=== PATIENT | male | born 1950 | race African-American/Black ===

== ENCOUNTER 2017-02-22 15:55 | Emergency (ER) | payer OTHER ==
--- NOTE | 2017-02-22 16:23 | ER Document Report ---
ED General - General Stated Complaint: ALTERED MENTAL STATUS Time seen by provider: 16:19 Mode of Arrival: Medic Information source: Patient Notes: This is a 66-year-old man with a history of hypertension and diabetes who is brought in by EMS because of an altered mental status. EMS reports that the patient had gone to the [employer] and that he had parked in the middle of the road and got out. EMS was apparently called because the patient appeared confused. Blood glucose in the field was 140. In the emergency room, the patient is without complaint. He does not remember the events after the [employer]. He states he went to the [employer] to get money. - HPI Onset: Just prior to arrival Onset/Duration: Sudden Quality of pain: No pain Severity: None Pain Level: Denies Associated symptoms: denies: Chills, Nonproductive cough, Productive cough, Fever, Shortness of breath Exacerbated by: Denies Relieved by: Denies Similar symptoms previously: No Recently seen / treated by doctor: No - Related Data Allergies/Adverse Reactions: No Known Allergies Allergy (Verified 02/22/17 17:19) Home Medications: Current Home Medications Amlodipine Besylate 10 mg PO DAILY 02/22/17 [History] Duloxetine HCl 60 mg PO DAILY 02/22/17 [History] Past Medical History - General Information source: Patient, Emergency Med Personnel - Social History Smoking Status: Current Every Day Smoker Cigarette use (# per day): Yes - a pack and a half a day Chew tobacco use (# tins/day): No Smoking Education Provided: No Frequency of alcohol use: None Drug Abuse: None Lives with: Family Family History: None Patient has suicidal ideation: No Patient has homicidal ideation: No - Past Medical History Cardiac Medical History: Reports: Hx Hypertension Pulmonary Medical History: Reports: None Neurological Medical History: Reports: None Endocrine Medical History: Reports: Hx Diabetes Mellitus Type 2 Renal/ Medical History: Reports: None Malignancy Medical History: Reports None GI Medical History: Reports: None Musculoskeltal Medical History: Reports None Skin Medical History: Reports None Psychiatric Medical History: Reports: None Traumatic Medical History: Reports: None Infectious Medical History: Reports: None Surgical Hx: Other - Noncontributory Review of Systems - Review of Systems Constitutional: denies: Chills, Fever EENT: No symptoms reported Cardiovascular: No symptoms reported Respiratory: No symptoms reported Gastrointestinal: No symptoms reported Genitourinary: No symptoms reported Male Genitourinary: No symptoms reported Musculoskeletal: No symptoms reported Skin: No symptoms reported Hematologic/Lymphatic: No symptoms reported Neurological/Psychological: See HPI Physical Exam - Vital signs Vitals: Pulse Resp BP Pulse Ox 87 16 161/98 H 98 02/22/17 15:57 02/22/17 15:57 02/22/17 15:57 02/22/17 15:57 Notes: Physical exam: GENERAL: 66-year-old man, sitting up in stretcher, no acute distress. HEAD: Atraumatic, normocephalic. EYES: Pupils equal round and reactive to light, extraocular movements intact, sclera anicteric, left conjunctiva is injected. ENT: The patient does have 2 small abrasions on the inner aspect of the bridge of the nose on the left side. There is no tenderness over the bridge of the nose. The septum are intact. There is no evident other evidence of injury. Patient denies any fall or trauma. It is possible he scratch the area. His nails are long. TMs normal, nares patent, oropharynx clear without exudates. Moist mucous membranes. NECK: Normal range of motion, supple without lymphadenopathy or JVD. LUNGS: Breath sounds clear to auscultation bilaterally and equal. No wheezes rales or rhonchi. HEART: Regular rate and rhythm without murmurs, rubs or gallops. ABDOMEN: Soft, normoactive bowel sounds. No tenderness to palpation. No guarding, no rebound. No masses appreciated. EXTREMITIES: Normal range of motion, no pitting or edema. No clubbing or cyanosis. NEUROLOGICAL: Cranial nerves II through XII grossly intact. The patient knows where he is, the month, the year, his age and the president. Motor exam is 5 over 5 upper and lower, Normal speech, cerebellar exam (finger to nose) is sharp. PSYCH: Normal mood, normal affect. SKIN: Warm, Dry, normal turgor, no rashes or lesions noted. Course - Vital Signs Vital signs: Temp Pulse Resp BP Pulse Ox 98.0 F 87 19 171/95 H 95 02/22/17 16:04 02/22/17 16:04 02/22/17 20:25 02/22/17 20:25 02/22/17 20:25 - Laboratory Result Diagrams: 02/22/17 16:25 04/19/17 16:25 Laboratory results interpreted by me: 02/22/17 02/22/17 02/22/17 16:25 16:25 16:33 WBC 12.1 H RBC 6.36 H MCV 78 L MCH 25.1 L RDW 14.3 H Glucose 148 H POC Glucose 124 H ALT 20 L - Diagnostic Test Radiology reviewed: Image reviewed, Reports reviewed - CT of the head shows no acute stroke or bleed. - EKG Interpretation by Me Rate: Normal Rhythm: NSR - EKG shows normal sinus rhythm with a ventricular rate of 80, no acute ST-T wave changes. Discharge - Discharge Clinical Impression: altered mental status resolved Condition: Stable Disposition: HOME, SELF-CARE Additional Instructions: As we discussed, the head CT looked good. The chest x-ray looked good. In the lab work looked very good. Recommendations: I would recommend he take it easy over the next few days. Bring a copy of today's lab results and x-ray reports with you when you see your doctor at the [facility]. I would reschedule the colonoscopy that you were supposed to have this Monday. Return to the emergency room for any concerns or getting worse.
[2017-02-22 16:41] LABS: ABSOLUTE BASOPHILS # (AUTO) 0.2 10^3/uL (0.0-0.2); ABSOLUTE EOSINOPHILS # (AUTO) 0.4 10^3/uL (0.0-0.6); ABSOLUTE LYMPHOCYTES (AUTO) 4.1 10^3/uL (0.5-4.7); ABSOLUTE MONOCYTES (AUTO) 0.8 10^3/uL (0.1-1.4); ABSOLUTE NEUT (AUTO) 6.6 10^3/uL (1.7-8.2); BASOPHILS % (AUTO) 1.3 % (0-2); EOSINOPHILS % (AUTO) 3.7 % (0-6); HEMATOCRIT 49.3 % (37.9-51.0); HEMOGLOBIN 15.9 g/dL (13.5-17.0); HGB HCT DIFFERENCE -1.6; LYMPHOCYTES % (AUTO) 33.7 % (13-45); MEAN CORPUSCULAR HEMOGLOBIN 25.1 pg (27.0-33.4); MEAN CORPUSCULAR HGB CONC 32.4 g/dL (32.0-36.0); MEAN CORPUSCULAR VOLUME 78 fl (80-97); MONOCYTES % (AUTO) 6.6 % (3-13); RED BLOOD COUNT 6.36 10^6/uL (4.35-5.55); RED CELL DISTRIBUTION WIDTH 14.3 % (11.5-14.0); SEGMENTED NEUTROPHILS % (AUTO) 54.7 % (42-78); WHITE BLOOD COUNT 12.1 10^3/uL (4.0-10.5)
[2017-02-22 16:50] LABS: APPEARANCE,URINE CLEAR; BILIRUBIN,URINE NEGATIVE (NEGATIVE); GLUCOSE, URINE NEGATIVE (NEGATIVE); KETONES,URINE NEGATIVE (NEGATIVE); LEUKOCYTE ESTERASE,URINE NEGATIVE (NEGATIVE); NITRITE,URINE NEGATIVE (NEGATIVE); PROTEIN,URINE NEGATIVE (NEGATIVE); URINE SPECIFIC GRAVITY 1.024; UROBILINOGEN,URINE NEGATIVE mg/dL (<2.0)
[2017-02-22 17:02] LABS: URINE BARBITURATES SCREEN NEGATIVE; URINE METHADONE SCREEN NEGATIVE; URINE OPIATES LOW NEGATIVE
[2017-02-22 17:05] LABS: ALANINE AMINOTRANSFERASE 20 U/L (21-72); ALBUMIN 4.3 g/dL (3.5-5.0); ALKALINE PHOSPHATASE 74 U/L (38-126); ANION GAP 15 (5-19); ASPARTATE AMINO TRANSFERASE 23 U/L (17-59); BILIRUBIN,DIRECT 0.1 mg/dL (0.0-0.4); BILIRUBIN,TOTAL 0.3 mg/dL (0.2-1.3); BLOOD UREA NITROGEN 16 mg/dL (7-20); CALCIUM 9.9 mg/dL (8.4-10.2); CARBON DIOXIDE 24 mmol/L (22-30); CHLORIDE 106 mmol/L (98-107); CREATINE KINASE 90 U/L (55-170); CREATININE RESULT 1.07 mg/dL (0.52-1.25); GLUCOSE 148 mg/dL (75-110); POTASSIUM 4.2 mmol/L (3.6-5.0); SODIUM 144.5 mmol/L (137-145); TOTAL PROTEIN 7.5 g/dL (6.3-8.2)
[2017-02-22 17:08] LABS: ALCOHOL < 10 mg/dL (NONE DETECTED)
[2017-02-22 17:17] LABS: CREATINE KINASE MB 1.71 ng/mL (<4.55)
[2017-02-22 17:19] LABS: TROPONIN I < 0.012 ng/mL
[2017-02-22 17:24] LABS: URINE PHENCYCLIDINE SCREEN NEGATIVE
--- NOTE | 2017-02-22 20:08 | EKG REPORT ---
SEVERITY:- NORMAL ECG - SINUS RHYTHM : Confirmed by: Kasey Brown MD 22-Feb-2017 20:07:30
[2017-02-22 20:33] VITALS: BP 171/95
== END 2017-02-22 20:34 | disposition home or self-care (01) ==
LOC: ER 15:55
DX: R41.82 Altered mental status, unspecified (principal); I10 Essential (primary) hypertension; E11.9 Type 2 diabetes mellitus without complications; F17.210 Nicotine dependence, cigarettes, uncomplicated
CPT/HCPCS: 36415; 70450; 71010; 80053; 80307; 81001; 82550; 82553; 82962; 84484; 85025; 93005; 93010; 99285